=== PATIENT | male | born 1995 | race Caucasian/White ===

== ENCOUNTER → 2017-09-18 | Outpatient (CLI) | payer BC | LOC: CFH 09:25 | PROVIDERS: ATTEND Nurse Practitioner Family | DX: R07.89 Other chest pain (principal); R07.82 Intercostal pain | CPT/HCPCS: 71046 ==

== ENCOUNTER 2020-05-06 15:44 | Emergency (ER) | payer SELFPAY ==
[~2020-05-06] VITALS: Ht 170.2 cm; Wt 100.4 kg
--- NOTE | 2020-05-06 16:39 | NUR ---
INSIDE SALES REPRESENTATIVE: PT TO ROOM FROM LOBBY
[2020-05-06] MEDS ORDERED: KETOROLAC 30 MG/1 ML IM ONE (17:30)
[2020-05-06] MEDS ORDERED: KETOROLAC 60 MG/2 ML ONE (17:33)
[2020-05-06 17:39] VITALS: BP 139/91
[2020-05-06 17:54] LABS: ALBUMIN 4.4 g/dL (3.4-5.0); ANION GAP 5 mmol/L (5-15); CALCIUM 9.5 mg/dL (8.5-10.1); CHLORIDE 104 mmol/L (98-107)
[2020-05-06 17:55] LABS: BASOPHILS % (AUTO) 0 % (0-1); EOSINOPHILS % (AUTO) 0 % (1-7); LYMPHOCYTES % (AUTO) 17 % (22-44); MEAN CORPUSCULAR HEMOGLOBIN 28.9 pg (27.5-34.5); MEAN CORPUSCULAR HGB CONC 33.5 g/dL (33.2-36.2); MEAN PLATELET VOLUME 7.3 fL (7.4-10.4); MONOCYTES % (AUTO) 7 % (2-9); NEUTROPHILS % (AUTO) 76 % (42-75); PLATELET COUNT 342 x10^3/uL (130-400); RED BLOOD COUNT 5.19 x10^6/uL (4.38-5.82); RED CELL DISTRIBUTION WIDTH 12.6 % (9.4-14.8)
[2020-05-06 17:59] LABS: ALANINE AMINOTRANSFERASE 50 U/L (12-78); ALKALINE PHOSPHATASE 96 U/L (45-117); BILIRUBIN,TOTAL 0.5 mg/dL (0.2-1.0); CREATININE 0.93 mg/dL (0.7-1.3); MD NO; TOTAL PROTEIN 8.1 g/dL (6.4-8.2); TROPONIN I < 0.015 ng/mL (0.000-0.045)
== END 2020-05-06 18:45 | disposition home or self-care (01) ==
LOC: ED 17:13
DX: R07.89 Other chest pain (principal)
CPT/HCPCS: 36415; 71046; 80053; 84484; 85025; 93005; 96372; 99285; J1885